=== PATIENT | male | born 1990 | race African-American/Black ===

== ENCOUNTER 2017-02-24 20:55 | Emergency (ER) | payer OTHER ==
[~2017-02-24] VITALS: Ht 193 cm; Wt 109.1 kg
[~2017-02-24 20:55] MED LIST: ALBUTEROL0.09 MG/A1 IH; SINGULAIR10 MG PO
[2017-02-24 20:59] VITALS: BP 155/72; PULSE 80; TEMP 97.5
[2017-02-24] MEDS ORDERED: FLEXERIL 1010 MG/TAB PO (21:32)
== END 2017-02-24 21:48 | disposition home or self-care (01) ==
LOC: COL.ER 20:55
DX: M76.32 Iliotibial band syndrome, left leg (principal)

== ENCOUNTER 2018-12-02 20:21 | Emergency (ER) | payer SELFPAY ==
[~2018-12-02] VITALS: Ht 193 cm; Wt 113.6 kg
[~2018-12-02 20:21] MED LIST changes: +FLEXERIL 1010 MG/TAB PO
[2018-12-02 20:32] VITALS: BP 122/64; TEMP 97.8
[2018-12-02 23:05] VITALS: PULSE 85
== END 2018-12-02 23:10 | disposition home or self-care (01) ==
LOC: COL.ER 20:21
DX: S50.02XA Contusion of left elbow, initial encounter (principal); F17.210 Nicotine dependence, cigarettes, uncomplicated; F12.90 Cannabis use, unspecified, uncomplicated; X50.9XXA Other and unspecified overexertion or strenuous movements or postures, initial encounter; Y92.009 Unspecified place in unspecified non-institutional (private) residence as the place of occurrence of the external cause; Y93.44 Activity, trampolining

== ENCOUNTER 2022-01-22 22:12 | Emergency (ER) | payer SELFPAY ==
[~2022-01-22] VITALS: Ht 193 cm; Wt 122.7 kg
[2022-01-22 22:29] VITALS: BP 139/97; TEMP 97.9
[2022-01-22] MEDS ORDERED: ROBAXIN 75750 MG/TAB PO (22:56)
[2022-01-22 23:42] VITALS: PULSE 62
== END 2022-01-22 23:42 | disposition home or self-care (01) ==
LOC: COL.ER 22:12
DX: M79.605 Pain in left leg (principal); F17.200 Nicotine dependence, unspecified, uncomplicated; Z28.310 Unvaccinated for COVID-19
CPT/HCPCS: J1885

== ENCOUNTER 2023-12-11 11:04 | Emergency (ER) | payer SELFPAY ==
[~2023-12-11] VITALS: Ht 193 cm; Wt 125.0 kg
[~2023-12-11 11:04] MED LIST changes: +AMOXICILLIN 8751 TAB PO; +NORCO 325 MG-51 TAB PO; +ROBAXIN 75750 MG/TAB PO
[2023-12-11 11:07] VITALS: TEMP 98
[2023-12-11] MEDS ORDERED: AMOXICILLIN 8751 TAB PO (12:54)
[2023-12-11] MEDS ORDERED: PERCOCET 325 MG1 TA2 PO (12:56)
[2023-12-11] MEDS ORDERED: oxyCODONE/Acetaminophen 5-325 MG TAB PO ONE (13:00)
[2023-12-11 13:06] VITALS: BP 99/70; PULSE 62
== END 2023-12-11 13:06 | disposition home or self-care (01) ==
LOC: COL.ER 11:04
DX: K05.30 Chronic periodontitis, unspecified (principal); F17.210 Nicotine dependence, cigarettes, uncomplicated